=== PATIENT | male | born 1960 | race Caucasian/White ===

== ENCOUNTER 2022-01-09 08:28 | Observation (INO) ==
[2022-01-09] MEDS ORDERED: 0.9 % Sodium Chloride 1,000 ML ONE ×2 (08:51→09:08)
[2022-01-09] MEDS ORDERED: *HR* FentaNYL (PF) 100 MCG/2 ML VIAL ONE (09:08)
[2022-01-09] MEDS ORDERED: Heparin 1,000 UNITS/500 mL 500 ML ONE (09:08)
[2022-01-09] MEDS ORDERED: Nitroglycerin 1,000 MCG/5 ML VIAL IV ONE (09:08)
[2022-01-09] MEDS ORDERED: *HR* Midazolam HCl 2 MG/2 ML VIAL ONE ×2 (09:08→09:26)
[2022-01-09] MEDS ORDERED: ISOVUE-370 200 ML INFUS..BTL ONE (09:08)
[2022-01-09] MEDS ORDERED: *HR* Heparin 10,000 UNIT/10 ML VIAL ONE (09:08)
[2022-01-09] MEDS: *HR* Heparin 5,000 UNIT/ML VIAL SQ SCH (16:37)
[2022-01-09] MEDS: Isosorbide MONOnitrate (24 HR) 30 MG TAB.ER.24H PO SCH (16:55)
[2022-01-10 03:36] LABS: Hematocrit 42.2 % (37.5-50.1); Hemoglobin 14.3 g/dL (12.9-16.9)
[2022-01-10 04:07] LABS: Troponin I 0.03 ng/mL (< 0.04)
[2022-01-10 04:57] LABS: BUN/Creatinine Ratio 21 (6-26); Blood Urea Nitrogen 16 mg/dL (8-23); eGFR For African Americans > 60 (> 60); eGFR For Non-African Americans > 60 (> 60)
[2022-01-10] MEDS: *HR* Heparin 5,000 UNIT/ML VIAL SQ SCH ×2 (05:15→16:31)
[2022-01-10] MEDS: Isosorbide MONOnitrate (24 HR) 30 MG TAB.ER.24H PO SCH (08:49)
[2022-01-10] MEDS: lisinopriL 20 MG TABLET PO SCH (08:49)
[2022-01-10] MEDS: Aspirin 81 MG TAB.CHEW PO SCH (08:49)
[2022-01-10] MEDS ORDERED: Heparin 1,000 UNITS/500 mL 500 ML ONE (11:41)
[2022-01-10] MEDS ORDERED: ISOVUE-370 200 ML INFUS..BTL ONE (11:41)
[2022-01-10] MEDS ORDERED: Nitroglycerin 1,000 MCG/5 ML VIAL IV ONE (11:41)
[2022-01-10] MEDS ORDERED: *HR* Heparin 10,000 UNIT/10 ML VIAL ONE ×2 (11:41→12:07)
[2022-01-10] MEDS ORDERED: 0.9 % Sodium Chloride 1,000 ML ONE ×3 (11:41→12:04)
[2022-01-10] MEDS ORDERED: *HR* FentaNYL (PF) 100 MCG/2 ML VIAL ONE (12:01)
[2022-01-10] MEDS ORDERED: *HR* Midazolam HCl 2 MG/2 ML VIAL ONE (12:01)
[2022-01-11 02:29] LABS: Hematocrit 42.9 % (37.5-50.1); Hemoglobin 14.3 g/dL (12.9-16.9)
[2022-01-11 02:57] LABS: Troponin I 0.03 ng/mL (< 0.04)
[2022-01-11 02:59] LABS: BUN/Creatinine Ratio 21 (6-26); Blood Urea Nitrogen 15 mg/dL (8-23); eGFR For African Americans > 60 (> 60); eGFR For Non-African Americans > 60 (> 60)
[2022-01-11] MEDS: *HR* Heparin 5,000 UNIT/ML VIAL SQ SCH ×2 (05:14→16:13)
[2022-01-11 07:22] VITALS: TEMP 97.9; O2SAT 95
[2022-01-11] MEDS: Isosorbide MONOnitrate (24 HR) 30 MG TAB.ER.24H PO SCH (08:05)
[2022-01-11] MEDS: lisinopriL 20 MG TABLET PO SCH (08:05)
[2022-01-11] MEDS: Aspirin 81 MG TAB.CHEW PO SCH (08:05)
[2022-01-11 11:33] VITALS: BP 144/92; PULSE 85
== END 2022-01-11 16:31 | disposition home or self-care (01) ==
LOC: INVDIALAB 08:28 → 3BNU 08:28
PROVIDERS: ADMIT Internal Medicine; ATTEND Internal Medicine

== ENCOUNTER 2022-03-14 06:03 | Inpatient (IN) ==
[~2022-03-14 06:03] MED LIST: *HR* FentaNYL (PF) 1,000 MCG/20 ML VIAL ONE; *HR* Midazolam HCl 5 MG/5 ML VIAL IVP ONE; DOBUTamine 1,000 MG/250 ML BAG ONE; NiCARdipine 2.5 MG/10 ML Syringe IVPB ONE
[2022-03-14] MEDS ORDERED: niCARdipine 20 MG/200 ML MLS IVC ONE (06:05)
[2022-03-14] MEDS ORDERED: *HR* Norepinephrine 4 MG/4 ML VIAL IVC ONE (06:05)
[2022-03-14] MEDS ORDERED: *HR* Rocuronium Bromide 50 MG/5 ML VIAL ONE (06:05)
[2022-03-14] MEDS ORDERED: *HR* Etomidate 20 MG/10 ML AMPUL IVP ONE (06:07)
[2022-03-14] MEDS ORDERED: Tranexamic Acid 1,000 MG/10 ML VIAL ONE (06:07)
[2022-03-14] MEDS ORDERED: EPINEPHrine 1 MG/ML VIAL ONE (06:07)
[2022-03-14] MEDS ORDERED: Protamine Sulfate 250 MG/25 ML VIAL IVP ONE (06:19)
[2022-03-14] MEDS ORDERED: Chlorhexidine Rinse 15 ML MOUTHWASH MM SCH (06:21)
[2022-03-14] MEDS ORDERED: CeFAZolin Syr 2,000MG/20 ML 2,000 MG/20 ML SYRINGE IVPB ONE (06:21)
[2022-03-14] MEDS ORDERED: Papaverine 60 MG/2 ML VIAL IVP ONE (06:35)
[2022-03-14] MEDS ORDERED: *HR* Vasopressin 20 UNIT/ML VIAL ONE (06:39)
[2022-03-14] MEDS ORDERED: Buckersberg's Blood Cardioplegia PF ONE (07:00)
[2022-03-14] MEDS ORDERED: del Nido Cardioplegia Solution PF ONE ×2 (07:00)
[2022-03-14] MEDS ORDERED: Vancomycin 1,500 MG/265 ML IV.SOLN IVPB ONE (07:00)
[2022-03-14] MEDS ORDERED: Heparin 15,000 UNIT in 0.9 % Sodium Chloride 500 ML IV ONE (07:00)
[2022-03-14] MEDS ORDERED: Norepinephrine 4 MG in 0.9 % Sodium Chloride 250 ML IVC PRN (07:00)
[2022-03-14 09:18] LABS: ABG Base Excess 0 mEq/L (-2 to 3); ABG Chloride 105 mEq/L (98-107); ABG Glucose 227 mg/dL (60-95); ABG HCO3 29 mEq/L (21-27); ABG Ionized Calcium 1.22 mmol/L (1.15-1.35); ABG Oxygen Saturation 100 % (95-98); ABG PCO2 60 mmHg (35-45); ABG PH 7.29 pH Units (7.32-7.45); ABG PO2 346 mmHg (85-104); ABG TCO2 30 mEq/L (20-26)
[2022-03-14] MEDS ORDERED: Ondansetron 4 MG/2 ML VIAL IVP PRN (10:01)
[2022-03-14] MEDS ORDERED: Calcium Gluconate 1gm/50mL 1 GM/50 ML BAG IVPB PRN (10:01)
[2022-03-14] MEDS ORDERED: Naloxone 0.4 MG/ML INJ IVP PRN (10:01)
[2022-03-14] MEDS ORDERED: Potassium Chloride 40 MEQ/200 ML BAG IVPB PRN (10:01)
[2022-03-14] MEDS ORDERED: *HR* Dextrose 50 % in Water (Syg) 50 ML SYRINGE IVP PRN (10:01)
[2022-03-14] MEDS ORDERED: Insulin Regular, Human 100 UNIT/ML IV PRN (10:01)
[2022-03-14] MEDS ORDERED: Albumin Human 5% 50.0 GM/1,000 ML IV.SOLN ONE (10:46)
[2022-03-14 11:13] LABS: ABG Base Excess 1 mEq/L (-2 to 3); ABG HCO3 31 mEq/L (21-27); ABG Oxygen Saturation 100 % (95-98); ABG PCO2 70 mmHg (35-45); ABG PH 7.25 pH Units (7.32-7.45); ABG PO2 215 mmHg (85-104); ABG TCO2 33 mEq/L (20-26); Blood Gas Modality ASSIST CONTROL; Blood Gas VT 600 cc
[2022-03-14 11:20] LABS: Basophils # 0.1 K/mcL (0.0-0.2); Basophils % 0.3 %; Eosinophils # 0.4 K/mcL (0.0-0.6); Eosinophils % 1.5 %; Hematocrit 44.5 % (37.5-50.1); Hemoglobin 14.4 g/dL (12.9-16.9); Immature Granulocytes % 1.2 % (0-4); Lymphocytes # 3.7 K/mcL (0.6-4.6); Lymphocytes % 15.1 %; Mean Corpuscular HGB Conc 32.4 g/dL (31.6-35.5); Mean Corpuscular Hemoglobin 29.4 pg (28.0-33.3); Mean Corpuscular Volume 90.8 fL (83.0-100.0); Mean Platelet Volume 11.8 fL (9.4-12.4); Monocytes # 1.7 K/mcL (0.0-1.3); Monocytes % 6.8 %; Neutrophils # 18.3 K/mcL (1.6-8.9); Platelet Count 201 K/mcL (140-400); Red Cell Distribution Width 13.3 % (11.5-14.5); Segmented Neutrophils % 75.1 %; White Blood Count 24.4 K/mcL (4.3-11.1)
[2022-03-14 11:35] LABS: BUN/Creatinine Ratio 19 (6-26); Blood Urea Nitrogen 15 mg/dL (8-23); Calcium 8.2 mg/dL (8.6-10.3); Carbon Dioxide 28 mEq/L (23-29); Chloride 105 mEq/L (98-107); Glucose 267 mg/dL (70-105); Magnesium 1.7 mg/dL (1.6-2.6); Osmolality,Calculated 298 (280-300); Potassium 4.5 mEq/L (3.5-5.1); Sodium 139 mEq/L (136-145); eGFR For African Americans > 60 (> 60); eGFR For Non-African Americans > 60 (> 60)
[2022-03-14] MEDS: niCARdipine 20 MG/200 ML MLS IVC SCH ×6 (11:40→22:30)
[2022-03-14] MEDS: Albumin Human 5% 12.5 GM/250 ML IV.SOLN IVPB PRN ×3 (11:42→13:20)
[2022-03-14] MEDS: *HR* FentaNYL (PF) 100 MCG/2 ML VIAL IVP PRN ×3 (11:42→19:31)
[2022-03-14] MEDS: DOBUTamine 1,000 MG/250 ML BAG IVC SCH (11:43)
[2022-03-14] MEDS: Norepinephrine 4 MG/254 ML IV.SOLN IVC SCH (11:43)
[2022-03-14 11:51] LABS: INR 1.1
[2022-03-14 11:53] LABS: Activated Partial Thrombo Time 28.5 Seconds (26.0-36.0)
[2022-03-14 12:20] LABS: ABG Base Excess 0 mEq/L (-2 to 3); ABG Chloride 103 mEq/L (98-107); ABG Glucose 272 mg/dL (60-95); ABG HCO3 29 mEq/L (21-27); ABG Oxygen Saturation 100 % (95-98); ABG PCO2 68 mmHg (35-45); ABG PH 7.24 pH Units (7.32-7.45); ABG PO2 249 mmHg (85-104); ABG TCO2 31 mEq/L (20-26)
[2022-03-14 12:20] LABS: ABG Base Excess 1 mEq/L (-2 to 3); ABG Chloride 103 mEq/L (98-107); ABG Glucose 259 mg/dL (60-95); ABG HCO3 31 mEq/L (21-27); ABG Ionized Calcium 1.24 mmol/L (1.15-1.35); ABG Oxygen Saturation 100 % (95-98); ABG PCO2 77 mmHg (35-45); ABG PH 7.22 pH Units (7.32-7.45); ABG PO2 295 mmHg (85-104); ABG TCO2 34 mEq/L (20-26)
[2022-03-14] MEDS: Pantoprazole 40 MG VIAL IVP SCH (12:21)
[2022-03-14] MEDS: *HR* OxyCODONE/APAP 5/325 TABLET PO PRN ×3 (12:21→22:16)
[2022-03-14] MEDS: Ringers Solution, Lactated 1,000 ML IVC SCH (12:21)
[2022-03-14] MEDS: CeFAZolin 2 GM/120 ML BAG IVPB SCH (15:11)
[2022-03-14 16:07] LABS: ABG Base Excess 2 mEq/L (-2 to 3); ABG HCO3 29 mEq/L (21-27); ABG Oxygen Saturation 98 % (95-98); ABG PCO2 53 mmHg (35-45); ABG PH 7.34 pH Units (7.32-7.45); ABG PO2 108 mmHg (85-104); ABG TCO2 30 mEq/L (20-26); Blood Gas Modality CPAP/PS; Blood Gas Pressure Support 8 cm H2O
[2022-03-14] MEDS ORDERED: *HR* Metoprolol 5 MG/5 ML VIAL IVP ONE (18:07)
[2022-03-14] MEDS: Acetaminophen 325 MG TABLET PO PRN (18:33)
[2022-03-14 20:42] LABS: ABG Base Excess 1 mEq/L (-2 to 3); ABG HCO3 28 mEq/L (21-27); ABG Oxygen Saturation 90 % (95-98); ABG PCO2 49 mmHg (35-45); ABG PH 7.36 pH Units (7.32-7.45); ABG PO2 61 mmHg (85-104); ABG TCO2 29 mEq/L (20-26); Blood Gas Modality 3LPM
[2022-03-14] MEDS: Chlorhexidine Rinse 15 ML MOUTHWASH MM SCH (22:27)
[2022-03-15] MEDS: niCARdipine 20 MG/200 ML MLS IVC SCH ×2 (00:25→03:44)
[2022-03-15] MEDS: CeFAZolin 2 GM/120 ML BAG IVPB SCH ×4 (00:25→23:00)
[2022-03-15] MEDS: *HR* FentaNYL (PF) 100 MCG/2 ML VIAL IVP PRN ×3 (03:26→09:45)
[2022-03-15 03:55] LABS: Basophils % 0.1 %; Hematocrit 42.8 % (37.5-50.1); Hemoglobin 14.3 g/dL (12.9-16.9); Immature Granulocytes % 0.7 % (0-4); Lymphocytes # 1.7 K/mcL (0.6-4.6); Lymphocytes % 8.9 %; Mean Corpuscular HGB Conc 33.4 g/dL (31.6-35.5); Mean Corpuscular Hemoglobin 30.2 pg (28.0-33.3); Mean Corpuscular Volume 90.5 fL (83.0-100.0); Mean Platelet Volume 12.1 fL (9.4-12.4); Monocytes # 1.9 K/mcL (0.0-1.3); Monocytes % 9.8 %; Neutrophils # 15.5 K/mcL (1.6-8.9); Platelet Count 207 K/mcL (140-400); Red Blood Count 4.73 M/mcL (4.19-5.50); Red Cell Distribution Width 13.4 % (11.5-14.5); Segmented Neutrophils % 80.5 %; White Blood Count 19.2 K/mcL (4.3-11.1)
[2022-03-15 04:03] LABS: BUN/Creatinine Ratio 18 (6-26); Blood Urea Nitrogen 12 mg/dL (8-23); Calcium 8.3 mg/dL (8.6-10.3); Carbon Dioxide 25 mEq/L (23-29); Chloride 103 mEq/L (98-107); Glucose 146 mg/dL (70-105); Magnesium 2.2 mg/dL (1.6-2.6); Osmolality,Calculated 284 (280-300); Potassium 3.9 mEq/L (3.5-5.1); Sodium 136 mEq/L (136-145); eGFR For African Americans > 60 (> 60); eGFR For Non-African Americans > 60 (> 60)
[2022-03-15 04:08] LABS: INR 1.1; Prothrombin Time 11.7 Seconds (9.4-12.1)
[2022-03-15 04:11] LABS: Activated Partial Thrombo Time 29.5 Seconds (26.0-36.0)
[2022-03-15] MEDS: *HR* OxyCODONE/APAP 5/325 TABLET PO PRN ×4 (06:29→20:00)
[2022-03-15] MEDS: Aspirin Enteric Coated 81 MG Tablet PO SCH ×2 (08:20→11:56)
[2022-03-15] MEDS: Pantoprazole 40 MG VIAL IVP SCH (08:20)
[2022-03-15] MEDS: Chlorhexidine Rinse 15 ML MOUTHWASH MM SCH ×2 (08:20→19:59)
[2022-03-15] MEDS: Acetaminophen 325 MG TABLET PO PRN (09:44)
[2022-03-15] MEDS: Norepinephrine 4 MG/254 ML IV.SOLN IVC SCH ×2 (11:55→11:57)
[2022-03-15] MEDS: DOBUTamine 1,000 MG/250 ML BAG IVC SCH (11:56)
[2022-03-15] MEDS: Ringers Solution, Lactated 1,000 ML IVC SCH (11:57)
[2022-03-15] MEDS ORDERED: *HR* Dextrose 50 % in Water (Syg) 50 ML SYRINGE IVP PRN ×2 (12:17→12:25)
[2022-03-15] MEDS ORDERED: Dextrose 4 GM Chewable Tablets PO PRN ×4 (12:17→12:25)
[2022-03-15] MEDS ORDERED: D5% in Water 1,000 ML IVC PRN ×2 (12:17→12:25)
[2022-03-15] MEDS ORDERED: Naloxone 0.4 MG/ML INJ IVP PRN (12:25)
[2022-03-15] MEDS ORDERED: Ondansetron 4 MG/2 ML VIAL IVP PRN (12:25)
[2022-03-15] MEDS ORDERED: Insulin Regular, Human 100 UNIT/ML IV PRN (12:25)
[2022-03-15] MEDS ORDERED: Albumin Human 5% 12.5 GM/250 ML IV.SOLN IVPB PRN (12:25)
[2022-03-15] MEDS ORDERED: Potassium Chloride 40 MEQ/200 ML BAG IVPB PRN (12:25)
[2022-03-15] MEDS ORDERED: Furosemide 40 MG/4 ML VIAL IVP ONE (12:32)
[2022-03-15 15:31] LABS: Magnesium 2.3 mg/dL (1.6-2.6); Potassium 3.6 mEq/L (3.5-5.1)
[2022-03-15] MEDS ORDERED: Insulin LISPRO 300 UNITS/3 ML VIAL SUBQ SCH ×2 (16:30→21:00)
[2022-03-15] MEDS: Insulin LISPRO 300 UNITS/3 ML VIAL SUBQ SCH ×2 (17:37→19:48)
[2022-03-16 03:20] LABS: Basophils % 0.2 %; Eosinophils % 0.1 %; Hematocrit 43.2 % (37.5-50.1); Hemoglobin 13.9 g/dL (12.9-16.9); Immature Granulocytes % 0.6 % (0-4); Lymphocytes % 11.4 %; Mean Corpuscular HGB Conc 32.2 g/dL (31.6-35.5); Mean Corpuscular Hemoglobin 29.3 pg (28.0-33.3); Mean Corpuscular Volume 90.9 fL (83.0-100.0); Mean Platelet Volume 12.4 fL (9.4-12.4); Monocytes % 11.3 %; Neutrophils # 13.5 K/mcL (1.6-8.9); Platelet Count 179 K/mcL (140-400); Red Blood Count 4.75 M/mcL (4.19-5.50); Red Cell Distribution Width 13.4 % (11.5-14.5); Segmented Neutrophils % 76.4 %; White Blood Count 17.6 K/mcL (4.3-11.1)
[2022-03-16 03:38] LABS: BUN/Creatinine Ratio 18 (6-26); Blood Urea Nitrogen 14 mg/dL (8-23); Calcium 8.5 mg/dL (8.6-10.3); Carbon Dioxide 27 mEq/L (23-29); Chloride 98 mEq/L (98-107); Glucose 171 mg/dL (70-105); Magnesium 2.5 mg/dL (1.6-2.6); Osmolality,Calculated 279 (280-300); Potassium 4.4 mEq/L (3.5-5.1); Sodium 132 mEq/L (136-145); eGFR For African Americans > 60 (> 60); eGFR For Non-African Americans > 60 (> 60)
[2022-03-16] MEDS: *HR* OxyCODONE/APAP 5/325 TABLET PO PRN ×3 (07:13→20:15)
[2022-03-16] MEDS: Insulin LISPRO 300 UNITS/3 ML VIAL SUBQ SCH ×4 (08:00→21:58)
[2022-03-16] MEDS: Aspirin Enteric Coated 81 MG Tablet PO SCH (08:00)
[2022-03-16] MEDS: Pantoprazole 40 MG VIAL IVP SCH (08:01)
[2022-03-16] MEDS: Chlorhexidine Rinse 15 ML MOUTHWASH MM SCH ×2 (08:01→20:14)
[2022-03-16] MEDS: CeFAZolin 2 GM/120 ML BAG IVPB SCH (08:02)
[2022-03-16] MEDS: Furosemide 40 MG/4 ML VIAL IVP SCH (11:09)
[2022-03-17 03:14] LABS: Basophils % 0.2 %; Eosinophils # 0.1 K/mcL (0.0-0.6); Eosinophils % 0.8 %; Hematocrit 43.2 % (37.5-50.1); Immature Granulocytes % 0.8 % (0-4); Lymphocytes # 2.4 K/mcL (0.6-4.6); Lymphocytes % 16.3 %; Mean Corpuscular HGB Conc 32.4 g/dL (31.6-35.5); Mean Corpuscular Hemoglobin 28.9 pg (28.0-33.3); Mean Corpuscular Volume 89.3 fL (83.0-100.0); Mean Platelet Volume 12.4 fL (9.4-12.4); Monocytes # 1.6 K/mcL (0.0-1.3); Monocytes % 10.8 %; Neutrophils # 10.2 K/mcL (1.6-8.9); Platelet Count 188 K/mcL (140-400); Red Blood Count 4.84 M/mcL (4.19-5.50); Red Cell Distribution Width 13.4 % (11.5-14.5); Segmented Neutrophils % 71.1 %; White Blood Count 14.4 K/mcL (4.3-11.1)
[2022-03-17 03:24] LABS: BUN/Creatinine Ratio 21 (6-26); Blood Urea Nitrogen 17 mg/dL (8-23); Calcium 8.7 mg/dL (8.6-10.3); Carbon Dioxide 29 mEq/L (23-29); Chloride 97 mEq/L (98-107); Glucose 157 mg/dL (70-105); Magnesium 2.2 mg/dL (1.6-2.6); Osmolality,Calculated 279 (280-300); Potassium 3.9 mEq/L (3.5-5.1); Sodium 132 mEq/L (136-145); eGFR For African Americans > 60 (> 60); eGFR For Non-African Americans > 60 (> 60)
[2022-03-17] MEDS: Aspirin Enteric Coated 81 MG Tablet PO SCH (07:42)
[2022-03-17] MEDS: Pantoprazole 40 MG VIAL IVP SCH (07:42)
[2022-03-17] MEDS: Chlorhexidine Rinse 15 ML MOUTHWASH MM SCH ×2 (07:42→19:55)
[2022-03-17] MEDS: Insulin LISPRO 300 UNITS/3 ML VIAL SUBQ SCH ×4 (07:43→22:51)
[2022-03-17] MEDS: Furosemide 40 MG/4 ML VIAL IVP SCH (07:43)
[2022-03-17] MEDS: *HR* OxyCODONE/APAP 5/325 TABLET PO PRN ×2 (07:46→17:18)
[2022-03-17] MEDS: *HR* Heparin 5,000 UNIT/ML VIAL SQ SCH (17:15)
[2022-03-17] MEDS ORDERED: *HR* Metoprolol 5 MG/5 ML VIAL IVP ONE (18:30)
[2022-03-18] MEDS: *HR* Heparin 5,000 UNIT/ML VIAL SQ SCH ×2 (06:04→16:53)
[2022-03-18 06:26] LABS: Basophils % 0.3 %; Eosinophils # 0.3 K/mcL (0.0-0.6); Eosinophils % 2.4 %; Hemoglobin 14.2 g/dL (12.9-16.9); Immature Granulocytes % 0.8 % (0-4); Lymphocytes # 2.2 K/mcL (0.6-4.6); Lymphocytes % 19.2 %; Mean Corpuscular Hemoglobin 29.1 pg (28.0-33.3); Mean Corpuscular Volume 88.1 fL (83.0-100.0); Mean Platelet Volume 12.2 fL (9.4-12.4); Monocytes # 1.4 K/mcL (0.0-1.3); Monocytes % 11.8 %; Neutrophils # 7.5 K/mcL (1.6-8.9); Platelet Count 208 K/mcL (140-400); Red Blood Count 4.88 M/mcL (4.19-5.50); Red Cell Distribution Width 13.2 % (11.5-14.5); Segmented Neutrophils % 65.5 %; White Blood Count 11.5 K/mcL (4.3-11.1)
[2022-03-18 06:49] LABS: BUN/Creatinine Ratio 29 (6-26); Blood Urea Nitrogen 18 mg/dL (8-23); Calcium 8.7 mg/dL (8.6-10.3); Carbon Dioxide 23 mEq/L (23-29); Chloride 99 mEq/L (98-107); Glucose 171 mg/dL (70-105); Magnesium 1.9 mg/dL (1.6-2.6); Osmolality,Calculated 280 (280-300); Potassium 3.9 mEq/L (3.5-5.1); Sodium 132 mEq/L (136-145); eGFR For African Americans > 60 (> 60); eGFR For Non-African Americans > 60 (> 60)
[2022-03-18] MEDS: Aspirin Enteric Coated 81 MG Tablet PO SCH (07:24)
[2022-03-18] MEDS: Furosemide 40 MG/4 ML VIAL IVP SCH ×2 (07:24→20:31)
[2022-03-18] MEDS: Pantoprazole 40 MG VIAL IVP SCH (07:25)
[2022-03-18] MEDS: Insulin LISPRO 300 UNITS/3 ML VIAL SUBQ SCH ×4 (07:25→20:32)
[2022-03-18] MEDS: Chlorhexidine Rinse 15 ML MOUTHWASH MM SCH ×2 (07:25→20:31)
[2022-03-18] MEDS ORDERED: Isovue-370 500 ML BOTTLE IVP ONE (09:14)
[2022-03-19 04:39] LABS: Basophils % 0.4 %; Eosinophils # 0.3 K/mcL (0.0-0.6); Eosinophils % 2.9 %; Hematocrit 43.2 % (37.5-50.1); Hemoglobin 14.6 g/dL (12.9-16.9); Immature Granulocytes % 0.6 % (0-4); Lymphocytes # 2.6 K/mcL (0.6-4.6); Lymphocytes % 24.4 %; Mean Corpuscular HGB Conc 33.8 g/dL (31.6-35.5); Mean Corpuscular Hemoglobin 29.4 pg (28.0-33.3); Mean Corpuscular Volume 86.9 fL (83.0-100.0); Mean Platelet Volume 12.3 fL (9.4-12.4); Monocytes # 1.5 K/mcL (0.0-1.3); Monocytes % 13.9 %; Neutrophils # 6.1 K/mcL (1.6-8.9); Platelet Count 258 K/mcL (140-400); Red Blood Count 4.97 M/mcL (4.19-5.50); Segmented Neutrophils % 57.8 %; White Blood Count 10.6 K/mcL (4.3-11.1)
[2022-03-19 04:45] LABS: BUN/Creatinine Ratio 28 (6-26); Blood Urea Nitrogen 17 mg/dL (8-23); Calcium 8.7 mg/dL (8.6-10.3); Carbon Dioxide 24 mEq/L (23-29); Chloride 99 mEq/L (98-107); Glucose 183 mg/dL (70-105); Magnesium 1.9 mg/dL (1.6-2.6); Osmolality,Calculated 280 (280-300); Sodium 132 mEq/L (136-145); eGFR For African Americans > 60 (> 60); eGFR For Non-African Americans > 60 (> 60)
[2022-03-19] MEDS: *HR* Heparin 5,000 UNIT/ML VIAL SQ SCH ×2 (06:28→16:36)
[2022-03-19] MEDS: Chlorhexidine Rinse 15 ML MOUTHWASH MM SCH ×2 (07:42→21:25)
[2022-03-19] MEDS: Aspirin Enteric Coated 81 MG Tablet PO SCH (07:43)
[2022-03-19] MEDS: Furosemide 40 MG/4 ML VIAL IVP SCH ×2 (07:44→21:25)
[2022-03-19] MEDS: Insulin LISPRO 300 UNITS/3 ML VIAL SUBQ SCH ×4 (07:50→21:28)
[2022-03-19] MEDS: Acetaminophen 325 MG TABLET PO PRN (13:30)
[2022-03-19] MEDS: *HR* OxyCODONE/APAP 5/325 TABLET PO PRN (17:15)
[2022-03-20 04:55] LABS: Basophils # 0.1 K/mcL (0.0-0.2); Basophils % 0.5 %; Eosinophils # 0.4 K/mcL (0.0-0.6); Eosinophils % 3.3 %; Hematocrit 38.1 % (37.5-50.1); Immature Granulocytes % 1.4 % (0-4); Lymphocytes # 2.4 K/mcL (0.6-4.6); Lymphocytes % 19.7 %; Mean Corpuscular HGB Conc 33.6 g/dL (31.6-35.5); Mean Corpuscular Hemoglobin 29.6 pg (28.0-33.3); Mean Platelet Volume 12.7 fL (9.4-12.4); Monocytes # 1.7 K/mcL (0.0-1.3); Monocytes % 14.3 %; Neutrophils # 7.3 K/mcL (1.6-8.9); Platelet Count 309 K/mcL (140-400); Red Blood Count 4.33 M/mcL (4.19-5.50); Segmented Neutrophils % 60.8 %; White Blood Count 12.1 K/mcL (4.3-11.1)
[2022-03-20 05:00] LABS: Hemoglobin 12.8 g/dL (12.9-16.9)
[2022-03-20 05:25] LABS: Alanine Aminotransferase 26 Units/L (7-52); Albumin 3.3 g/dL (3.5-5.7); Alkaline Phosphatase 54 Units/L (34-104); Aspartate Amino Transferase 18 Units/L (13-39); BUN/Creatinine Ratio 31 (6-26); Bilirubin,Total 0.5 mg/dL (0.3-1.0); Blood Urea Nitrogen 22 mg/dL (8-23); Calcium 8.8 mg/dL (8.6-10.3); Carbon Dioxide 24 mEq/L (23-29); Chloride 97 mEq/L (98-107); Globulin 3.2 g/dL (2.4-3.5); Glucose 191 mg/dL (70-105); Osmolality,Calculated 282 (280-300); Potassium 3.9 mEq/L (3.5-5.1); Sodium 132 mEq/L (136-145); Total Protein 6.5 g/dL (6.4-8.9); eGFR For African Americans > 60 (> 60); eGFR For Non-African Americans > 60 (> 60)
[2022-03-20] MEDS: *HR* Heparin 5,000 UNIT/ML VIAL SQ SCH ×2 (06:43→17:05)
[2022-03-20] MEDS: Chlorhexidine Rinse 15 ML MOUTHWASH MM SCH ×2 (07:34→20:06)
[2022-03-20] MEDS: Aspirin Enteric Coated 81 MG Tablet PO SCH (07:34)
[2022-03-20] MEDS: Furosemide 40 MG/4 ML VIAL IVP SCH ×2 (07:35→20:07)
[2022-03-20] MEDS: Insulin LISPRO 300 UNITS/3 ML VIAL SUBQ SCH ×4 (07:35→20:12)
[2022-03-20] MEDS: *HR* OxyCODONE/APAP 5/325 TABLET PO PRN (09:00)
[2022-03-20] MEDS: Acetaminophen 325 MG TABLET PO PRN (16:46)
[2022-03-21] MEDS: *HR* OxyCODONE/APAP 5/325 TABLET PO PRN (04:46)
[2022-03-21] MEDS: *HR* Heparin 5,000 UNIT/ML VIAL SQ SCH ×2 (05:54→17:33)
[2022-03-21] MEDS: Insulin LISPRO 300 UNITS/3 ML VIAL SUBQ SCH ×3 (08:10→17:27)
[2022-03-21] MEDS: Furosemide 40 MG/4 ML VIAL IVP SCH (08:12)
[2022-03-21] MEDS: Aspirin Enteric Coated 81 MG Tablet PO SCH (08:13)
[2022-03-21] MEDS: Chlorhexidine Rinse 15 ML MOUTHWASH MM SCH (08:13)
[2022-03-21 09:09] LABS: Hematocrit 46.6 % (37.5-50.1)
[2022-03-21 09:11] LABS: Hemoglobin 15.5 g/dL (12.9-16.9)
[2022-03-21] MEDS ORDERED: Moderna Covid-19 Vaccine 100MCG/0.5mL IM ONE (14:03)
[2022-03-21 14:31] LABS: Adenovirus Not Detected (Not Detect); Coronavirus 229E Not Detected (Not Detect); Coronavirus HKU1 Not Detected (Not Detect); Coronavirus NL63 Not Detected (Not Detect); Coronavirus OC43 Not Detected (Not Detect); Human Metapneumovirus Not Detected (Not Detect); Human Rhinovirus/Enterovirus Not Detected (Not Detect); SARS-CoV-2 Not Detected (Not Detect)
[2022-03-21 14:32] LABS: Bordetella Pertussis Not Detected (Not Detect); Chlamydophila pneumoniae Not Detected (Not Detect); Influenza A Subtype 2009 H1 Not Detected (Not Detect); Influenza B Not Detected (Not Detect); Mycoplasma pneumoniae Not Detected (Not Detect); Parainfluenza Virus 1 Not Detected (Not Detect); Parainfluenza Virus 2 Not Detected (Not Detect); Parainfluenza Virus 3 Not Detected (Not Detect); Parainfluenza Virus 4 Not Detected (Not Detect); Respiratory Syncytial Virus Not Detected (Not Detect)
[2022-03-21 15:11] VITALS: BP 150/99; TEMP 98.4
[2022-03-21 16:00] VITALS: O2SAT 94
[2022-03-21 20:06] VITALS: PULSE 116
== END 2022-03-21 20:00 | DRG 235 ==
LOC: SAMDAY 06:03 → ICNU 10:01 → 2NNU 03-16 15:11
PROVIDERS: ADMIT Thoracic Surgery (Cardiothoracic Vascular Surgery); ATTEND Thoracic Surgery (Cardiothoracic Vascular Surgery)